=== PATIENT | female | born 1980 | race Caucasian/White ===

== ENCOUNTER 2024-09-08 19:22 | Emergency (ER) | payer OTHER, MEDICAID, SELFPAY ==
[2024-09-08 19:23] VITALS: BMI 33.4
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
--- NOTE | 2024-09-08 19:37 | XR_ITS ---
Examination: AP chest single view Technique: AP portable upright chest single view Exam date and time: October 08, 2024 2018 hrs. Indications: Shortness of breath today Findings: Normal heart size No pneumonia or pulmonary edema Mild osteopenia Impression: No pneumonia or pulmonary edema
--- NOTE | 2024-09-08 19:37 | EKG_ITS ---
[facility] Test Date: 2024-09-08 Pat Name: SHAYNA BERNARDO Department: Room: - Gender: Female Manager Solution: : 1980 Requested By: Steven Rooney Order Number: [id number] Reading MD: Steven Rooney Measurements Intervals [place]art Rate: 108 P: 46 HI: 175 QRS: -16 QRSD: 90 T: 41 QT: 319 QTc: 428 Interpretive Statements SINUS TACHYCARDIA ABNORMAL RHYTHM ECG Compared to ECG 04/01/2022 16:45:06 Sinus rhythm no longer present /store/S0/[id number].pdf
[2024-09-08 19:40] VITALS: BP 146/92; PULSE 115; RESP 26; TEMP 36.6; O2SAT 98
[2024-09-08 19:53] LABS: Carboxyhemoglobin 2.4 % (0.5-1.5)
[2024-09-08 19:55] LABS: Basophils % (Auto) 0 % (0-2.5); Eosinophils # (Auto) 0.1 Thou/mm3 (0.0-0.5); Eosinophils % (Auto) 1 % (0-10); Hematocrit 31.6 % (36.0-46.0); Hemoglobin 10.2 g/dL (12.0-16.0); Immature Granulocytes % (Auto) 0 % (0-0); Immature Granulocytes Auto 0.03 Thou/mm3 (0.00-0.00); Lymphocytes # (Auto) 2.1 Thou/mm3 (1.0-4.8); Lymphocytes % (Auto) 20 % (10-50); Mean Corpuscular HGB Conc 32.3 g/dl (31.0-37.0); Mean Corpuscular Hemoglobin 24.1 pg (25.0-35.0); Mean Corpuscular Volume 75 fL (80-100); Monocytes # (Auto) 0.6 Thou/mm3 (0.0-0.8); Monocytes % (Auto) 6 % (0-12); Neutrophils # (Auto) 7.4 Thou/mm3 (1.8-7.7); Neutrophils % (Auto) 73 % (37-80); Nucleated Red Blood Cell % 0 /100 WBC (0); Platelet Count 406 Thou/mm3 (140-440); RDW Standard Deviation 45.1 fL (36.4-46.3); Red Blood Count 4.23 Miln/mm3 (4.00-5.20); White Blood Count 10.2 Thou/mm3 (3.6-11.0)
[2024-09-08 20:17] LABS: Alanine Aminotransferase 14 U/L (10-49); Albumin, Serum 4.3 gm/dL (3.5-5.0); Albumin/Globulin Ratio 1.2 (1.2-2.2); Alkaline Phosphatase 128 U/L (46-116); Anion Gap 11 (7-16); Aspartate Amino Transferase 14 U/L (0-34); BUN/Creatinine Ratio 15 Ratio (12-20); Bilirubin,Total 0.4 mg/dL (0.3-1.2); Blood Urea Nitrogen 18 mg/dL (9-23); Calcium 10.2 mg/dL (8.3-10.6); Calcium (Corrected) 10.2 mg/dL (8.5-10.1); Carbon Dioxide 25.5 mMol/L (20.0-31.0); Chloride 108 mMol/L (98-107); Creatinine (Component) 1.2 mg/dL (0.6-1.3); Estimated Creatinine Clearance 76.2 mL/min (>60); Globulin 3.6 gm/dL (2.3-3.5); Glucose 86 mg/dL (74-106); Magnesium 2.2 mg/dL (1.6-2.6); Osmolality,Calculated 287 (275-295); Potassium 3.8 mMol/L (3.4-5.1); Sodium 144 mMol/L (136-145); Total Protein 7.9 gm/dL (5.7-8.2); Troponin I < 0.020 ng/mL (0.0-0.045); eGFR 58 See Note
[2024-09-08 20:24] LABS: Base Excess 1 (-3-3); HCO3 25 mEq/L (20-26); Inspired Oxygen, FIO2 100 %; O2 Saturation 101 % (91-98); PCO2 40 mmHg (32.0-48.0); PO2 216 mmHg (83-108); pH, Arterial 7.41 (7.35-7.45)
[2024-09-08 20:25] LABS: Allen Test Performed/OK; Puncture Site Right Radial
[2024-09-08] MEDS: MethylPREDNISolone SOD SUCC 62.5 MG/ML 2ML VIAL 125 MG IVP (20:37)
[2024-09-08] MEDS: SODIUM CHLORIDE 0.9% 1000 ML 1,000 ML 999 ML IV (20:38)
[2024-09-08] MEDS: HYDROmorphone INJ 2 MG/ML VIAL IVP (20:38)
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
[2024-09-08 22:38] VITALS: BP 105/78; PULSE 94; RESP 22; O2SAT 98
--- NOTE | 2024-09-08 22:46 | PC.NURSE ---
Pt verbalized understanding to pickle cutter [facility] Pt verbalized understanding to follow up with PCP. Pt in no acute distress, respirations even and unlabored. Pain rating 0/10. Gait balanced and stable while ambulating to hallway restroom. Pt verbalized understanding that if she starts to have difficulty breathing or symptoms get worse return to the ER.
== END 2024-09-08 22:51 | disposition home or self-care (01) ==
PROVIDERS: Emergency Provider Emergency Medicine; PCP Pediatrics
DX: T58.91XA Toxic effect of carbon monoxide from unspecified source, accidental (unintentional), initial encounter (principal); Z87.891 Personal history of nicotine dependence; Y92.009 Unspecified place in unspecified non-institutional (private) residence as the place of occurrence of the external cause
CPT/HCPCS: 36415; 36600; 71045; 80053; 82375; 82803; 83735; 84484; 85025; 93005; 96374; 96375; 99284; J2919; J3490; J7030

== ENCOUNTER 2024-10-17 15:45 | Emergency (ER) | payer MEDICAID, SELFPAY ==
[2024-10-18] MEDS: HYDROcodone/APAP 5/325 TABLET 1 TAB PO (14:28)
== END 2024-10-17 16:15 | disposition home or self-care (01) ==
LOC: SERX 16:25
PROVIDERS: Emergency Provider Emergency Medicine; PCP Obstetrics & Gynecology
DX: K08.89 Other specified disorders of teeth and supporting structures (principal); K04.7 Periapical abscess without sinus
CPT/HCPCS: 99283; A9270